=== PATIENT | male | born 1970 | race Caucasian/White ===

== ENCOUNTER 2021-05-20 09:29 | Emergency (ER) | payer OTHER ==
[~2021-05-20] VITALS: Ht 162.6 cm; Wt 95.3 kg
--- NOTE | 2021-05-20 09:37 | NUR ---
Patient to bed 7. RN evaluating the patient at bedside.
[2021-05-20 09:42] VITALS: BP 148/87
--- NOTE | 2021-05-20 09:49 | NUR ---
51 Y/O M BIB SPOUSE FROM HOME, C/O GROWTH ON ANUS LOOKS LIKE "WHITE PIMPLE" THAT STARTED ON 05/16/21, DENIES BLEEDING, DISCHARGE, N/V/D OR CONSTIPATION. LAST BM: THIS MORNING, SOFT AND EASY TO PASS. SKIN IS PINK/WARM/DRY; AAOX4 WITH EVEN AND STEADY GAIT, STATES HE IS UNABLE TO SIT DUE TO PAIN; LUNGS CLEAR BL; HR EVEN AND REGULAR; PT DENIES ANY FEVER, CP, SOB, OR COUGH AT THIS TIME; PATIENT STATES PAIN OF 10/10 AT THIS TIME; VSS; PATIENT POSITIONED FOR COMFORT LAYING ON L SIDE; HOB ELEVATED; BEDRAILS UP X2; BED DOWN. ER MD MADE AWARE OF PT STATUS. PMH: DENIES MED: DENIES NKA
[2021-05-20] MEDS ORDERED: AMOX-1000 PO (10:00)
[2021-05-20] MEDS ORDERED: DOCU-300 PO (10:00)
--- NOTE | 2021-05-20 10:23 | NUR ---
Dr. Carl is evaluating the patient at bedside.
[2021-05-20] MEDS ORDERED: LIDO5CRE19 TP (10:31)
[2021-05-20 10:46] VITALS: BP 148/87
--- NOTE | 2021-05-20 10:47 | NUR ---
Patient discharged with v/s stable. Written and verbal after care instructions given and explained. Patient alert, oriented and verbalized understanding of instructions. Ambulatory with steady gait. All questions addressed prior to discharge. ID band removed. Patient advised to follow up with PMD. Rx of AMOXICILLIN, DOCUSATE SODIUM, LIDOCAINE CREAM given. Patient educated on indication of medication including possible reaction and side effects. Opportunity to ask questions provided and answered.
== END 2021-05-20 10:47 | disposition home or self-care (01) ==
LOC: MED 09:29
DX: K61.0 Anal abscess (principal); Z79.899 Other long term (current) drug therapy
CPT/HCPCS: 46050; 99284